=== PATIENT | male | born 1955 | race Caucasian/White ===

== ENCOUNTER 2018-11-09 09:30 | Day surgery (SDC) | payer BC ==
[~2018-11-09 09:30] MED LIST: CHONDR SU A NA/HYALUR INTRAOC KIT (SURGICARE) ONE; EPINEPHRINE INJ/PF 1 MG/1 ML AMPULE ONE; KETOROLAC TROMETHAMINE 0.45% 4 DROP/0.4 ML DROPERETTE OD PRN; LIDOCAINE 1%/PHENYLEPHRINE 1.5% 1 ML VIAL ONE
[2018-11-09] MEDS: TETRACAINE HCL 0.5% OPH SOLN 4 ML OD PRN ×3 (10:14→10:55)
[2018-11-09] MEDS: TROPICAMIDE 1% OPH SOLN 3 ML OD PRN ×3 (10:15→10:35)
[2018-11-09] MEDS: BESIFLOXACIN HCL 0.6% OPH SUSP 5 ML BOTTLE OD PRN ×4 (10:15→11:07)
[2018-11-09] MEDS: CYCLOPENTOLATE 0.2%/PHENYLEPHRINE 1% OPH SOLN 2 ML OD PRN ×3 (10:15→10:35)
[2018-11-09] MEDS ORDERED: MIDAZOLAM 2 MG/2 ML INJ ONE (10:50)
[2018-11-09] MEDS: DORZOLAMIDE HCL 2%/TIMOLOL MALEAT 0.5% OPH SOLN 10 ML OD PRN ×2 (11:07)
--- NOTE | 2018-11-09 21:55 | [facility] DISCHARGE SUMMARY E ---
[facility] Discharge Summary NAME: PARISH BRANDON AGE: 63Y ADMITTED: 11/09/2018 DISCHARGED: 11/09/2018 HOSPITAL COURSE: This is a 63-year-old male who underwent cataract extraction of the right eye. DIAGNOSIS: CATARACT, RIGHT EYE. He underwent surgery because he was having difficulty driving secondary to blurred vision. DISCHARGE INSTRUCTIONS: He should be on a regular diet. No bending at his waist, no heavy lifting. He should use his Besivance, Prolensa, and Durezol at 3 p.m. and 8 p.m. and sleep with a rigid shield. I will see him for his 1 day postoperative tomorrow. DICTATING PHYSICIAN: CHINEUD HAILE M.D. 5020M 2151 Y#: [id number] ID: [id number] JOB#: [id number] ACCT: [id number] cc:CHINEDU HAILE M.D. >
--- NOTE | 2018-11-09 21:56 | [facility] OPERATIVE REPORT E ---
[facility] Operative Report NAME: PARISH BRANDON AGE: 63Y DATE OF SURGERY: 11/09/2018 ROOM: PREOPERATIVE DIAGNOSIS: CATARACT, RIGHT EYE. POSTOPERATIVE DIAGNOSIS: CATARACT, RIGHT EYE. OPERATION: Cataract extraction with insertion of an IOL of the right eye. SURGEON: CHINEDU HAILE M.D. ANESTHESIA: Topical. PROCEDURE: After obtaining appropriate consent, the patient's right eye was prepped and draped in sterile fashion as well as the surgeon in a sterile manner and cataract surgery was started. First a paracentesis blade was used to make a side-port incision. Viscoelastic was used to inflate the anterior chamber. Next a 2.4 mm incision was made with a 2.4 mm blade, clear corneal temporally. A continuous capsulorrhexis was made using a cystotome and Utrata forceps. Following this hydrodissection was carried out to make the lens fully loose and mobile and it was rotated 90 degrees. Following this, a olvhfm-dws-efowmvo technique was used to phacoemulsify the lens with a CDE of 11.51. The remaining cortex was removed with irrigation/aspiration. Provisc was instilled into the capsular bag to inflate the bag. A ZCBOO, 17.5 diopter lens was placed. The remaining viscoelastic material was removed with irrigation/aspiration. Following this, the incision was found to be watertight. Besivance was instilled into the eye and a protective shield was placed over the eye. The patient returned to the postoperative recovery in stable condition. DICTATING PHYSICIAN: CHINEDU HAILE M.D. 5020M 2150 PHY#: [id number] ID: [id number] JOB#: [id number] ACCT: [id number] cc:CHINEDU HAILE M.D. >
== END 2018-11-09 11:58 | disposition home or self-care (01) ==
LOC: SC 09:30
PROVIDERS: ATTEND Internal Medicine
DX: H25.13 Age-related nuclear cataract, bilateral (principal); E11.9 Type 2 diabetes mellitus without complications; I10 Essential (primary) hypertension; G47.30 Sleep apnea, unspecified; E66.9 Obesity, unspecified; Z79.84 Long term (current) use of oral hypoglycemic drugs; Z79.899 Other long term (current) drug therapy
CPT/HCPCS: 66984; 82962; J2250; J3490 ×2; J0171; J2370; 142; V2632

== ENCOUNTER 2019-01-23 07:59 | Day surgery (SDC) | payer BC ==
[~2019-01-23 07:59] MED LIST changes: -CHONDR SU A NA/HYALUR INTRAOC KIT (SURGICARE) ONE; -EPINEPHRINE INJ/PF 1 MG/1 ML AMPULE ONE; -KETOROLAC TROMETHAMINE 0.45% 4 DROP/0.4 ML DROPERETTE OD PRN; +KETOROLAC TROMETHAMINE 0.45% 4 DROP/0.4 ML DROPERETTE OS PRN; -LIDOCAINE 1%/PHENYLEPHRINE 1.5% 1 ML VIAL ONE
[2019-01-23] MEDS ORDERED: MIDAZOLAM 2 MG/2 ML INJ ONE ×2 (08:23→10:11)
[2019-01-23] MEDS: CYCLOPENTOLATE 0.2%/PHENYLEPHRINE 1% OPH SOLN 2 ML OS PRN ×3 (09:00→09:25)
[2019-01-23] MEDS: TROPICAMIDE 1% OPH SOLN 15 ML OS PRN ×3 (09:00→09:25)
[2019-01-23] MEDS: BESIFLOXACIN HCL 0.6% OPH SUSP 5 ML BOTTLE OS PRN ×4 (09:00→10:05)
[2019-01-23] MEDS: TETRACAINE HCL 0.5% OPH SOLN 4 ML OS PRN ×4 (09:00→09:44)
[2019-01-23] MEDS: EPINEPHRINE INJ/PF 1 MG/1 ML AMPULE ONE ×2 (09:56)
[2019-01-23] MEDS: CHONDR SU A NA/HYALUR INTRAOC KIT (SURGICARE) ONE ×2 (09:56)
[2019-01-23] MEDS: LIDOCAINE 1%/PHENYLEPHRINE 1.5% 1 ML VIAL ONE ×2 (09:56)
[2019-01-23] MEDS: DORZOLAMIDE HCL 2%/TIMOLOL MALEAT 0.5% OPH SOLN 10 ML OS PRN ×2 (10:05)
--- NOTE | 2019-01-23 12:19 | Operative Report ---
Operative Report-[facility] Operative Report: DATE OF SURGERY: 01/24/2019 PREOPERATIVE DIAGNOSIS: Cataracts, left eye POSTOPERATIVE DIAGNOSIS: Cataract, left eye OPERATION: Cataract extraction with insertion of an IOL of the left eye. Intraocular Lens Model: [19.0 zcb00] reason for surgery was difficulty driving at night secondary to increasing glare SURGEON: Bill Varghese MD ANESTHESIA: Topical PROCEDURE: After obtaining appropriate consent, the patient's left eye was prepped and draped in a sterile fashion as well as the surgeon in the sterile manner and cataract surgery was started. First a paracentesis blade was used to make a side-port incision. Viscoelastic was used to inflate the anterior chamber. Next a 2.4 mm incision was made with a 2.4 mm blade, clear corneal temporarily. A continuous capsulorrhexis was made using a cystotome and Utrata forceps. Following this hydrodissection was carried out to make commands fully loose and mobile and it was rotated 90 degrees. Following this, a divide and conquer technique was used to phacoemulsify the lens. The remaining cortex was removed with an irrigation/aspiration. Provisc was instilled into the capsular bag to inflate the bag.The intracular lens was placed. The remaining viscoelastic material was removed with irrigation/aspiration. Following this, the incision was found to be watertight. Besivance and Cosopt was instilled into the eye and a protective shield was placed over the eye. The patient was turned to the postoperative recovery in a stable condition.
== END 2019-01-23 10:42 | disposition home or self-care (01) ==
LOC: SC 07:59
PROVIDERS: ATTEND Internal Medicine
DX: H25.12 Age-related nuclear cataract, left eye (principal); E11.9 Type 2 diabetes mellitus without complications; I10 Essential (primary) hypertension; J44.9 Chronic obstructive pulmonary disease, unspecified; G47.30 Sleep apnea, unspecified; Z87.891 Personal history of nicotine dependence; Z79.84 Long term (current) use of oral hypoglycemic drugs; Z79.899 Other long term (current) drug therapy; Z79.51 Long term (current) use of inhaled steroids
CPT/HCPCS: 82962; 66984; J2250; J3490 ×2; J0171; J2370; V2632

== ENCOUNTER 2019-03-05 07:50 | Day surgery (SDC) | payer BC, OTHER ==
[~2019-03-05 07:50] MED LIST changes: -KETOROLAC TROMETHAMINE 0.45% 4 DROP/0.4 ML DROPERETTE OS PRN; +PROPOFOL INJ 200 MG/20 ML VIAL IV ONE
[2019-03-05] MEDS ORDERED: PROPOFOL INJ 200 MG/20 ML VIAL IV ONE (10:06)
[2019-03-05 10:33] VITALS: BP 156/93
--- NOTE | 2019-03-05 12:41 | Operative Report ---
Operative Report DATE OF SURGERY: 03/05/19 Operative Report: Risks, benefits and alternatives of the procedure including the risk of bleeding, perforation requiring surgery have been explained to the patient in detail and informed consent has been obtained. Patient is taken back to the endoscopy suite and placed in the left, lateral decubital position. Timeout was called. Propofol medication is administered. Rectal examination is done which did not reveal any masses, tears or fissures. An Olympus videoscope was introduced into the patient's rectum. Scope was then carefully advanced all the way to the cecum. Cecum was identified by the usual anatomical landmarks including the ileocecal valve as well as the appendiceal office. Photodocumentation is obtained. Scope was then sequentially pulled back via the various segments of the colon including the ascending colon, hepatic flexure, transverse colon, splenic flexure, descending colon and finally into the rectosigmoid portions of the colon. Retroflexion maneuvers performed. PREOPERATIVE DIAGNOSIS: Colorectal cancer screening POSTOPERATIVE DIAGNOSIS: Rectal polyps x2 removed via snare polypectomy and retrieved. right colon Inflammation noted on the right side of the colon status post biopsy. Diverticulosis without any evidence of diverticulitis. Internal hemorrhoids OPERATION: Colonoscopy with snare polypectomy. Colonoscopy with biopsy SURGEON: HALEIGH GOODSON ANESTHESIA: LMAC TISSUE REMOVED OR ALTERED: As noted above. COMPLICATIONS: None. ESTIMATED BLOOD LOSS: None. INTRAOPERATIVE FINDINGS: As noted above. PROCEDURE: Patient tolerated the procedure well. No immediate postprocedure comp occasions are noted. Patient is discharged in good condition. Discharge date 03/05/2019. Discharge diet: Regular. Discharge activity: Regular. 2 to 3-week follow-up to discuss findings. Patient is instructed to call the office or proceed to the emergency room should there be any further questions. Wait on the pathology. 3 to 5-year surveillance colonoscopy.
== END 2019-03-05 10:26 | disposition home or self-care (01) ==
LOC: END 07:50
PROVIDERS: ATTEND Internal Medicine Gastroenterology
DX: Z12.11 Encounter for screening for malignant neoplasm of colon (principal); Z87.891 Personal history of nicotine dependence; Z79.899 Other long term (current) drug therapy; Z79.51 Long term (current) use of inhaled steroids; K52.9 Noninfective gastroenteritis and colitis, unspecified; K57.30 Diverticulosis of large intestine without perforation or abscess without bleeding; K64.8 Other hemorrhoids; D12.8 Benign neoplasm of rectum
CPT/HCPCS: 45380; 45385; 82962; 88305 ×2; 00811; J2704; 811